=== PATIENT | female | born 1975 ===

== ENCOUNTER 2022-05-17 00:20 | Observation (INO) ==
[2022-05-17] MEDS ORDERED: niCARdipine INJ 25 MG in SODIUM CHLORIDE 0.9% 240 ML IV PRN (00:30)
[2022-05-17] MEDS ORDERED: hydrALAZINE 20 MG/1 ML VIAL IV STA (00:48)
[2022-05-17] MEDS ORDERED: PROCHLORPERAZINE 10 MG/2 ML VIAL IV ONE (01:18)
[2022-05-17] MEDS ORDERED: PROMETHAZINE 25 MG/1 ML VIAL IV PRN (02:00)
[2022-05-17] MEDS ORDERED: ONDANSETRON 4 MG/2 ML VIAL IV PRN (02:00)
[2022-05-17] MEDS ORDERED: ACETAMINOPHEN 325 MG TABLET PO PRN (02:00)
[2022-05-17] MEDS ORDERED: hydrALAZINE 20 MG/1 ML VIAL IV PRN (02:00)
[2022-05-17 02:47] LABS: Basophils % 0.3 % (0.0-0.8); Eosinophils % 0.2 % (0.00-10.9); Hematocrit 41.8 VOL% (35.7-47.0); Hemoglobin 14.3 GM/DL (12.0-16.0); Immature Granulocytes % 0.4 %; Immature Granulocytes Absolute 0.04 #; Lymphocytes # 2.3 10*3/uL (1.4-4.0); Lymphocytes % 20.8 % (21.3-54.2); Mean Corpuscular HGB Conc 34.2 GM/DL (32-36); Mean Corpuscular Volume 84.6 FL (87-102); Mean Platelet Volume 10.1 FL (9.6-12.0); Monocytes # 0.6 10*3/uL (0.11-0.8); Monocytes % 5.4 % (1.7-12.7); Neutrophils % 72.9 % (38.7-73.9); Platelet Count 298 T/CUMM (130-400); Red Blood Count 4.94 MC/CUMM (3.8-5.5); Red Cell Distribution Width 13.2 % (9.3-17.3)
[2022-05-17 03:10] LABS: Albumin 3.9 G/DL (3.4-5.0); Bilirubin,Total 1.7 MG/DL (0.20-1.00); Osmolality,Calculated 274.7 MOS/KG (273-304); Potassium 3.1 MMOL/L (3.5-5.1); Total Protein 7.6 G/DL (6.4-8.2)
[2022-05-17] MEDS ORDERED: POTASSIUM CHLORIDE 20 MEQ TABLET PO ONE (05:00)
[2022-05-17] MEDS ORDERED: amLODIPine 10 MG TABLET PO SCH ×2 (06:00→09:00)
[2022-05-17 08:17] VITALS: BP 152/89
[2022-05-17] MEDS ORDERED: PANTOPRAZOLE 40 MG TABLET PO SCH (09:00)
== END 2022-05-17 11:13 | disposition home or self-care (01) ==
LOC: EDUNIT# → EDBD → N.ED 00:20 → INTOOBSV 02:00 → N.EDINP 02:00 → N.TELES 04:10
PROVIDERS: ADMIT Internal Medicine; ATTEND Internal Medicine